=== PATIENT | male | born 1940 | race Caucasian/White ===

== ENCOUNTER 2018-04-17 17:09 | Emergency (ER) | payer OTHER ==
--- NOTE | 2018-04-17 17:32 | PDOC ---
Attending Attestation - Resident Resident Name: Jacque Richardsonan - ED Attending Attestation I have performed the following: I have examined & evaluated the patient, The case was reviewed & discussed with the resident, I agree w/resident's findings & plan - HPI HPI: 04/17/18 17:28 77y/o M h/o BPH noncompliant with his flomax for 4d presents sent from Dr. Ferguson 's office with urinary retention for 3d. reports dribbling with bladder distension, no flank pain or f/c. no h/o prostate surgery. - Physicial Exam PE: 04/17/18 17:30 afebrile well appearing and ambulating comfortably abd soft/nt but palpable distended bladder. no cvat - Medical Decision Making 04/17/18 17:31 77-year-old male with history of BPH presents with urinary retention for 3 days in the setting of noncompliance with his medication. Well-appearing without evidence of SIRS or sepsis, has had small urine output over that time. Tadeo decompression Check lites and creatinine given prolonged obstruction Urinalysis and urine culture sent Anticipate discharge with Tadeo to leg bag and urology follow-up 04/17/18 18:10 mild hypo-Na/Cl, Cr increased to 1.8 from 1.1 but K normal. about 900cc clear urine in Tadeo. Start IV NS 1L. Will discuss dispo with Dr. Ferguson, if can recheck labs in AM, pt feels well without hyperkalemia/volume overload from LEONARDO so can consider outpt management. 04/17/18 18:[address] Ferguson, agrees with d/c plan and will arrange for patient to have repeat chem tomorrow. Complete liter, tadeo to leg bag, d/c to repeat labs tomorrow with Marty and f/u urology this week.
[2018-04-17 17:44] VITALS: BP 141/82; PULSE 93; TEMP 98.5; BMI 20.9
--- NOTE | 2018-04-17 17:45 | PDOC ---
History of Present Illness <Khoa Redd - Last Filed: 04/17/18 18:39> - History of Present Illness Initial Comments: The patient is a 77M w/ a history of BPH who presents for evaluation of 3d of urinary retention. The patient reports that he stopped taking his Tamsulosin 4 days ago. Since that time he describes having frequent urinary dribbling but is unable to have a complete void. He denies painful passage of urine, blood in his urine, or abdominal pain. He denies ever having had this before. He denies any other medical problems including renal disease, DM, or HTN. He denies recent fevers/chills, LOPES, vision changes, chest pain, SOB, N/C/V, or changes in sensation 04/17/18 17:56 <Walt Richardson - Last Filed: 04/17/18 18:56> - General Chief Complaint: Urinary Catheter Problem Stated Complaint: insert a catheter Time Seen by Provider: 04/17/18 17:14 Past History <Khoa Redd - Last Filed: 04/17/18 18:39> <Walt Richardson - Last Filed: 04/17/18 18:56> - Past Medical History Allergies/Adverse Reactions: Allergies Allergy/AdvReac Type Severity Reaction Status Date / Time No Known Allergies Allergy Verified 04/17/18 17:39 Review of Systems - Review of Systems Able to Perform ROS?: Yes Comments:: GENERAL/CONSTITUTIONAL: No fever or chills. No weakness CARDIOVASCULAR: No chest pain or shortness of breath GASTROINTESTINAL: No nausea, vomiting, constipation GENITOURINARY: per HPI MUSCULOSKELETAL: No joint or muscle swelling or pain. No neck or back pain SKIN: No rash NEUROLOGIC: No headache, vertigo, loss of consciousness, or change in strength/ sensation ENDOCRINE: No increased thirst. No abnormal weight change HEMATOLOGIC/LYMPHATIC: No anemia, easy bleeding, or history of blood clots ALLERGIC/IMMUNOLOGIC: No hives or skin allergy 04/17/18 18:00 Is the patient limited Montserratian proficient: No <Walt Richardson - Last Filed: 04/17/18 18:56> *Physical Exam - Vital Signs Last Vital Signs Temp Pulse Resp BP Pulse Ox 98.5 F 93 H 18 141/82 97 04/17/18 17:11 04/17/18 17:11 04/17/18 17:11 04/17/18 17:11 04/17/18 17:11 <Khoa Redd - Last Filed: 04/17/18 18:39> - Vital Signs Vital Signs Temp Pulse Resp BP Pulse Ox 98.5 F 93 H 18 141/82 97 04/17/18 17:11 04/17/18 17:11 04/17/18 17:11 04/17/18 17:11 04/17/18 17:11 04/17/18 18:01 - Physical Exam Comments: GENERAL: Awake, alert, and fully oriented, in no acute distress HEAD: No signs of trauma, normocephalic, atraumatic EYES: PERRLA, EOMI, sclera anicteric, conjunctiva clear ENT: Hearing grossly normal, nares patent, oropharynx clear without exudates. Moist mucosa LUNGS: No distress, speaks full sentences, clear to auscultation bilaterally HEART: Regular rate and rhythm, normal S1 and S2, no murmurs appreciated, peripheral pulses normal and equal bilaterally ABDOMEN: Distended bladder palpable from suprapubic region to umbilicus; otherwise abd soft; normoactive bowel sounds. No guarding, no rebound EXTREMITIES : Normal inspection, Normal range of motion, no edema. No clubbing or cyanosis NEUROLOGICAL: Cranial nerves II through XII grossly intact. Normal speech, normal gait, no focal sensorimotor deficits SKIN: Warm, Dry, normal turgor, no rashes or lesions noted 04/17/18 18:01 <Walt Richardson - Last Filed: 04/17/18 18:56> ED Treatment Course - LABORATORY CBC & Chemistry Diagram: 04/17/18 17:26 - ADDITIONAL ORDERS Additional order review: Laboratory Results 04/17/18 17:26 Sodium 128 L Potassium 3.7 Chloride 95 L Carbon Dioxide 24 Anion Gap 9 BUN 59 H Creatinine 1.8 H Creat Clearance w eGFR 36.77 Random Glucose 139 H D Calcium 8.9 - Medications Given in the ED: ED Medications Discontinued Medications Generic Name Dose Route Start Last Admin Trade Name Freq PRN Reason Stop Dose Admin Sodium Chloride 1,000 ml 04/17/18 17:52 04/17/18 18:10 Normal Saline - IV 04/17/18 17:53 1,000 ml ONCE ONE Administration <Khoa Redd - Last Filed: 04/17/18 18:39> - LABORATORY CBC & Chemistry Diagram: 04/17/18 17:26 <Walt Richardson - Last Filed: 04/17/18 18:56> Medical Decision Making - Medical Decision Making The patient is a 77M w/ a history of BPH on Tamsulosin (missed last 4 days) who presents for evaluation of 3d of urinary retention ED Course BMP to evaluate renal fxn UA, UCx Tadeo placed for retention -Urine clear w/o evidence of hematuria -Will measure initial output -Will replace with leg bag 04/17/18 17:49 KEVIN, Cr 1.8, baseline 1.1 Hyponatremia 128 and Hypochloridemia 95 -Will give 1L NS -Will discuss case with Dr. Ferguson, if able to see pt in clinic tomorrow to f/u fxn will plan for DC 04/17/18 17:52 Patient will be able to obtain a follow up BMP tomorrow w/ Dr. Ferguson Will give pt referral to Urology Patient to restart his home Tamsulosin Plan for D/C w/ PCP and Urology f/u Will D/C with leg bag Discharge instructions and return precautions given Patient verbalized understanding and is in agreement UA w/o evidence of UTI Initial Uop approximately 800cc of light yellow urine Dispo: Home 04/17/18 18:49 <Walt Richardson - Last Filed: 04/17/18 18:56> *DC/Admit/Observation/Transfer <Khoa Redd - Last Filed: 04/17/18 18:39> - Discharge Dispostion Decision to Admit order: No <Walt Richardson - Last Filed: 04/17/18 18:56> Diagnosis at time of Disposition: Urinary retention - Discharge Dispostion Disposition: HOME Condition at time of disposition: Improved - Referrals Referrals: Blaise Cid MD [Staff Physician] - Jose Roberto Ferguson MD [Staff Physician] - - Patient Instructions Printed Discharge Instructions: How to Care for Your Tadeo Catheter -- Male, DI for Urinary Retention in Men Additional Instructions: You were seen in the Emergency Department for evaluation of urinary retention. A tadeo was placed and will need to be evaluated by a Urologist. Please follow up your referral within the next 3 days. Review the handouts provided at discharge. Continue your Flomax as previously prescribed. Blood tests need to be repeated to make sure your kidneys are recovering properly from being obstructed. RETURN TO DR. FERGUSON's OFFICE TOMORROW FOR BLOOD TESTS. He will leave a prescription order for you at the front end ui developer. Return to the Emergency Room if you develop fevers/chills, abdominal pain, blood in your urine, decreased urine flow, worsening pain, or any new/ concerning symptoms.
[2018-04-17 17:46] LABS: ANION GAP 9 MMOL/L (8-16); BLOOD UREA NITROGEN 59 mg/dl (7-18); CALCIUM 8.9 mg/dl (8.4-10.2); CHLORIDE 95 mmol/L (98-107); CO2 24 mmol/L (22-28); CREATININE 1.8 mg/dl (0.6-1.3); GLUCOSE,RANDOM 139 mg/dl (74-106); POTASSIUM 3.7 mmol/L (3.5-5.1); SODIUM 128 mmol/L (136-145)
[2018-04-17] MEDS ORDERED: SODIUM CHLORIDE 0.9% 500 ML INFUS.BAG IV ONE (17:52)
[2018-04-17 18:52] LABS: PH,URINE 5.5 (4.5-8); URINE APPEARANCE Clear; URINE BILIRUBIN Negative (NEGATIVE); URINE COLOR Yellow; URINE GLUCOSE (UA) Negative (NEGATIVE); URINE KETONE Negative (NEGATIVE); URINE LEUK ESTERASE Negative (NEGATIVE); URINE NITRITE Negative (NEGATIVE); URINE PROTEIN Negative (NEGATIVE); URINE UROBILINOGEN 0.2 (0.2-1.0)
[2018-04-17 18:53] LABS: URINE BACTERIA 1+ /hpf (NEGATIVE); URINE WBC 0-2 (0-2)
== END 2018-04-17 19:39 | disposition home or self-care (01) ==
LOC: FER 17:09
PROC: 0T9B70Z Drainage of Bladder with Drainage Device, Via Natural or Artificial Opening (ICD-10-PCS; principal; 2018-04-17)
PROC: 3E0337Z Introduction of Electrolytic and Water Balance Substance into Peripheral Vein, Percutaneous Approach (ICD-10-PCS; 2018-04-17)
DX: R33.9 Retention of urine, unspecified (principal); N40.0 Benign prostatic hyperplasia without lower urinary tract symptoms
CPT/HCPCS: 36415; 51702; 80048; 81003; 81015; 87086; 99283-25

== ENCOUNTER 2018-04-20 13:01 | Emergency (ER) | payer OTHER ==
[2018-04-20 13:13] VITALS: BP 108/68; PULSE 74; TEMP 99.1; BMI 21.5
--- NOTE | 2018-04-20 13:36 | PDOC ---
History of Present Illness - General Chief Complaint: Urinary Catheter Problem Stated Complaint: PT NEEDS CERON CATHETER REMOVED Time Seen by Provider: 04/20/18 13:10 History Source: Patient Exam Limitations: No Limitations - History of Present Illness Initial Comments: 04/20/18 13:31 77 yo M with h/o BPH here with c/o urinary retention. pt was seen in ed few days ago and had a ceron cathetar placed. here today to have it removed. states has been draining fine. no f/c no abd pain no back pain. wants it out because it is uncomfortable. believes his retention was from stopping his flomax for few days. no uti diagnosed on last visit. no f/c. spoke to dr. ferguson, who recommended pt have it out today if he wished. has not seen a urologist yet. has appointment scheduled for 2 days from today. Past History - Past Medical History Allergies/Adverse Reactions: Allergies Allergy/AdvReac Type Severity Reaction Status Date / Time No Known Allergies Allergy Verified 04/17/18 17:39 Home Medications: Ambulatory Orders Terazosin HCl [Hytrin] 1 mg PO DAILY 04/20/18 COPD: No Other medical history: LOW BLOOD PRESSURE - Suicide/Smoking/Psychosocial Hx Smoking History: Never smoked Information on smoking cessation initiated: No Hx Alcohol Use: No Drug/Substance Use Hx: No Substance Use Type: None Review of Systems - Review of Systems Constitutional: No: Chills, Diaphoresis, Fever HEENTM: No: Blurred Vision Respiratory: No: Cough, Orthopnea Cardiac (ROS): No: Chest Pain ABD/GI: No: Abdominal Distended : Yes: Other. No: Pain, Urgency Integumentary: No: Bruising, Change in Color All Other Systems: Reviewed and Negative *Physical Exam - Vital Signs Last Vital Signs Temp Pulse Resp BP Pulse Ox 99.1 F 74 16 108/68 100 04/20/18 13:03 04/20/18 13:03 04/20/18 13:03 04/20/18 13:03 04/20/18 13:03 Medical Decision Making - Medical Decision Making 04/20/18 13:35 pt with ho urinary retention, ceron placed requesting removal. has had not had followup with dr ferguson or urologist. informed pt high chance of recurrent retention will remove per request and followup with flori. message left with dr ferguson office. awaiting callback. *DC/Admit/Observation/Transfer Diagnosis at time of Disposition: Ceron catheter problem - Discharge Dispostion Disposition: HOME Condition at time of disposition: Good - Referrals Referrals: Jose Roberto Ferguson MD [Staff Physician] - Gordo Mckeon MD [Staff Physician] - - Patient Instructions Printed Discharge Instructions: DI for Urinary Retention in Men Additional Instructions: your ceron was removed today. you should return for any inability to urinate longer than 6 yrs, abdominal pain or any concerns. follow up [facility] Ferguson as scheduled. - Post Discharge Activity
== END 2018-04-20 13:47 | disposition home or self-care (01) ==
LOC: FER 13:01
DX: Z46.6 Encounter for fitting and adjustment of urinary device (principal)
CPT/HCPCS: 99282-25

== ENCOUNTER 2018-04-21 10:51 | Emergency (ER) | payer OTHER ==
[2018-04-21 11:04] VITALS: BP 127/72; PULSE 77; TEMP 98.3; BMI 21.5
[2018-04-21 11:31] LABS: PH,URINE 5.5 (4.5-8); URINE APPEARANCE Clear; URINE BILIRUBIN Negative (NEGATIVE); URINE COLOR Yellow; URINE GLUCOSE (UA) Negative (NEGATIVE); URINE KETONE Negative (NEGATIVE); URINE LEUK ESTERASE Negative (NEGATIVE); URINE NITRITE Negative (NEGATIVE); URINE PROTEIN Negative (NEGATIVE); URINE UROBILINOGEN 0.2 (0.2-1.0)
--- NOTE | 2018-04-21 11:42 | PDOC ---
History of Present Illness - General Chief Complaint: Urinary Problem Stated Complaint: URINARY RETENSION Time Seen by Provider: 04/21/18 10:54 History Source: Patient Exam Limitations: No Limitations - History of Present Illness Initial Comments: 04/21/18 11:14 77m with pmh of BPH presnets to the Ed with urinary retention since yesterday. He came yesterday to the ER to get his tadeo removed due to discomfort. Past History - Past Medical History Allergies/Adverse Reactions: Allergies Allergy/AdvReac Type Severity Reaction Status Date / Time No Known Allergies Allergy Verified 04/21/18 10:52 Home Medications: Ambulatory Orders Terazosin HCl [Hytrin] 1 mg PO DAILY 04/20/18 COPD: No Other medical history: URINARY RETENTION - Suicide/Smoking/Psychosocial Hx Smoking History: Never smoked Information on smoking cessation initiated: No Hx Alcohol Use: No Drug/Substance Use Hx: No Substance Use Type: None Review of Systems - Review of Systems Able to Perform ROS?: Yes Is the patient limited [place]an proficient: No Constitutional: No: Symptoms Reported HEENTM: No: Symptoms Reported Respiratory: No: Symptoms reported Cardiac (ROS): No: Symptoms Reported ABD/GI: No: Symptoms Reported : Yes: See HPI Musculoskeletal: No: Symptoms Reported Integumentary: No: Symptoms Reported Neurological: No: Symptoms reported All Other Systems: Reviewed and Negative *Physical Exam - Vital Signs Last Vital Signs Temp Pulse Resp BP Pulse Ox 98.3 F 77 20 127/72 98 04/21/18 10:52 04/21/18 10:52 04/21/18 10:52 04/21/18 10:52 04/21/18 10:52 - Physical Exam General Appearance: Yes: Nourished, Appropriately Dressed. No: Apparent Distress HEENT: positive: EOMI, CARLOS, Normal ENT Inspection Respiratory/Chest: positive: Lungs Clear, Normal Breath Sounds. negative: Chest Tender, Respiratory Distress Cardiovascular: positive: Regular Rhythm, Regular Rate, S1, S2 Gastrointestinal/Abdominal: positive: Normal Bowel Sounds, Flat, Soft. negative : Tender Extremity: positive: Normal Capillary Refill, Normal Inspection, Normal Range of Motion Integumentary: positive: Normal Color, Dry, Warm Neurologic: positive: Fully Oriented, Alert, Normal Mood/Affect, Normal Response , Motor Strength 5/5 Medical Decision Making - Medical Decision Making 04/21/18 12:58 Tadeo placed. 1.5L of Urine in bag. Checked after 30min, no change in volume. Will discharge with leg bag.. Patient will follow up with urologist on Monday. *DC/Admit/Observation/Transfer - Discharge Dispostion Disposition: HOME Condition at time of disposition: Stable Decision to Admit order: No - Referrals - Patient Instructions Printed Discharge Instructions: How to Care for Your Tadeo Catheter -- Male Additional Instructions: Follow up with your urologist on Monday. Come back to the ER for any new, worsening or concerning symptoms such as blood in the urine, fever, chills, abdominal pain or foul smelling urine. - Post Discharge Activity
--- NOTE | 2018-04-21 12:42 | PDOC ---
Attending Attestation - Resident Resident Name: GavinEdson - ED Attending Attestation I have performed the following: I have examined & evaluated the patient, The case was reviewed & discussed with the resident, I agree w/resident's findings & plan, Exceptions are as noted - HPI HPI: 04/21/18 12:41 77yo M hx BPH presents to the ED with urinary retention since tadeo was removed yesterday. Patient initially had a Tadeo placed for urine retention on April 17 after skipping some doses of flomax. He presented to the emergency department yesterday requesting removal as it was very uncomfortable. Tadeo was removed in the ED yesterday, and patient was able to void. He states since discharge she has been unable to void prompting him to come back today. Denies any fevers or chills. Denies nausea or vomiting. Denies chest pain, shortness of breath, headache, weakness/numbness. Has a follow-up appointment with a urologist on Monday. - Physicial Exam PE: 04/21/18 13:19 GENERAL: Awake, alert, and fully oriented, in no acute distress EYES: PERRLA, EOMI, sclera anicteric, conjunctiva clear ENT: Oropharynx clear without exudates. Moist mucosa NECK: Normal ROM, supple, no lymphadenopathy, JVD, or masses LUNGS: Breath sounds equal, clear to auscultation bilaterally. No wheezes, and no crackles HEART: Regular rate and rhythm, normal S1 and S2, no murmurs, rubs or gallops ABDOMEN: Soft, nontender, normoactive bowel sounds. No guarding, no rebound. No masses. : No CVAT, tadeo in place with 1300mL output over 1.5 hours EXTREMITIES: Normal range of motion, no edema. No cords, erythema, or tenderness NEUROLOGICAL: Normal speech, cranial nerves intact, 5/5 strength in all 4 extremities, normal sensation to light touch in all 4 extremities, normal cerebellar exam, normal gait, normal tone SKIN: Warm, Dry, normal turgor, no rashes or lesions noted. - Medical Decision Making 04/21/18 13:21 77yo M presents to the ED with urine retention after removal of tadoe yesterday. Tadeo replaced with 1300 UOP over 2 hours. Pt feels much better, has appt with urology on Monday. Clinically well appearing, stable for DC home I discussed the physical exam findings, ancillary test results and final diagnoses with the patient. I answered all of the patient's questions. The patient was satisfied with the care received and felt comfortable with the discharge plan and treatment plan. The patient will call their primary care physician within 24 hours to arrange follow-up and will return to the Emergency Department with any new, persistent or worsening symptoms.
== END 2018-04-21 13:18 | disposition home or self-care (01) ==
LOC: FER 10:51
PROC: 0T9B70Z Drainage of Bladder with Drainage Device, Via Natural or Artificial Opening (ICD-10-PCS; principal; 2018-04-21)
DX: R33.9 Retention of urine, unspecified (principal)
CPT/HCPCS: 51702; 81003; 87086; 99283-25

== ENCOUNTER 2018-05-01 05:58 | Day surgery (SDC) | payer OTHER ==
[2018-04-30 16:57] VITALS: BMI 21.5
--- NOTE | 2018-05-01 07:27 | HP ---
History & Physical Update - History History: No Change - Physical Physical: No Change - Assessment Assessment: No Change - Plan Plan: No Change
--- NOTE | 2018-05-01 07:29 | OP ---
Operative Note - Note: Operative Date: 05/01/18 Pre-Operative Diagnosis: BPH, urinary retention Operation: TURP Findings: BPH Post-Operative Diagnosis: Same as Pre-op Surgeon: Gordo Mckeon Anesthesiologist/IT ARCHITECTURE ANALYST: Lorraine Peraza Anesthesia: General Specimens Removed: prostate tissue Estimated Blood Loss (mls): 25 Drains & Tubes with Location: [address] 30 ml tadeo Operative Report Dictated: Yes
[2018-05-01] MEDS ORDERED: PROPOFOL 20 ML ONE (07:37)
[2018-05-01] MEDS ORDERED: ePHEDrine SULFATE 50 MG/1 ML AMPULE ONE (07:37)
[2018-05-01] MEDS ORDERED: MIDAZOLAM HCL 2 MG/2 ML SINGLE DOSE VIAL ONE (07:37)
[2018-05-01] MEDS ORDERED: SUCCINYLCHOLINE CHLORIDE 200 MG/10 ML VIAL ONE (07:37)
[2018-05-01] MEDS ORDERED: LIDOCAINE HCL/PF 2% SDV 5ML VIAL ONE (07:38)
[2018-05-01] MEDS ORDERED: DEXAMETHASONE SOD PHOSPHATE 4 MG/1 ML VIAL ONE (07:38)
[2018-05-01] MEDS ORDERED: ceFAZolin SODIUM 1 GM VIAL ONE (07:42)
[2018-05-01] MEDS ORDERED: ONDANSETRON 4 MG/2 ML VIAL IVPUSH PRN (08:06)
[2018-05-01] MEDS ORDERED: oxyCODONE HCL 5 MG TABLET PO PRN (08:07)
[2018-05-01] MEDS ORDERED: ACETAMINOPHEN 325 MG TABLET (FP) PO PRN (08:07)
[2018-05-01] MEDS ORDERED: ceFAZolin SODIUM 1 GM VIAL IVPB ONE (08:08)
[2018-05-01] MEDS ORDERED: LACTATED RINGERS SOLUTION 1,000 ML IV SCH (08:15)
--- NOTE | 2018-05-01 09:23 | OP ---
DATE OF OPERATION: 05/01/2018 PREOPERATIVE DIAGNOSES: Benign prostatic hypertrophy, urinary retention. POSTOPERATIVE DIAGNOSES: Benign prostatic hypertrophy, urinary retention. PROCEDURE: Transurethral resection of the prostate. SURGEON: Gordo Mckeon MD CDL FLATBED TRUCK DRIVER: None. ANESTHESIA: General via laryngeal mask. ANESTHESIOLOGIST: SANDY Friend SPECIMEN: Prostate tissue. CULTURES: None. DRAINS: 24-Kyrgyz 3-way Kasper catheter, 30-mL balloon. ESTIMATED BLOOD LOSS: 20 mL COMPLICATIONS: None. DESCRIPTION OF PROCEDURE: Patient brought in the operating room, placed on the operating table in supine position. After administration of general anesthesia via laryngeal mask, intravenous antibiotics were administered. Sequential compression devices were placed. Patient was placed in dorsal lithotomy position. Indwelling Kasper catheter was removed, and genitals and perineum were prepped and draped in usual sterile manner. A 26-Kyrgyz resectoscope sheath with visualizing obturator was inserted into the bladder under direct vision. Anterior urethra was normal. The prostatic urethra measured approximately 5 cm in length, demonstrated severe bilobar occlusion. The bladder was then entered, thoroughly inspected. There were no foreign bodies, tumors, stones, inflammation. Both ureteral orifices were in their usual location close to the bladder neck with clear efflux bilaterally. There were heavy bladder trabeculations with cellules and saccules. Now, the working element bipolar Winchester resectoscope was inserted. TURP was done in the standard fashion by first creating a groove in the left lateral lobe 2 o'clock position from the area of the bladder neck to the verumontanum, down to the level of the capsular fibers. The left lateral lobe of the prostate was then sequentially resected from the 2 to the 6 o'clock position, from the area of the bladder neck to the verumontanum, down to the level of the capsular fibers. In a similar manner, the right lateral lobe of the prostate was resected. The roof and the floor of the prostate were resected. All obstructive prostatic tissue from the bladder neck to the verumontanum was resected down to capsular fibers. Hemostasis was assured with electrocautery. All resected prostatic tissue was removed from the bladder using Ellik evacuator. Both ureteral orifices were intact at the end of the procedure. The bladder was left full. Instruments removed. A 24-Kyrgyz 3-way Kasper catheter was inserted in the bladder; 30 mL placed in the balloon; placed on continuous bladder irrigation. Return blood tinged. He tolerated the procedure well, transferred to the recovery room in stable condition. Reji [id number] cc: Jose Roberto Ferguson MD
[2018-05-01] MEDS ORDERED: ACETAMINOPHEN INJECTION 100 ML IVPB ONE (10:26)
[2018-05-01] MEDS: ACETAMINOPHEN 1000 MG/100 ML VIAL (NON FORMULARY) IVPB ONE ×2 (11:15→13:48)
[2018-05-01] MEDS: CEFAZOLIN 1 GM in DEXTROSE 5%-WATER - 50 ML IVPB SCH ×2 (13:47→18:53)
[2018-05-01] MEDS ORDERED: PT OWN MED DRAWER 7, Y5N ONE (18:07)
[2018-05-01] MEDS: CEFAZOLIN 1 GM/D5W 1 GM/50 ML BAG IVPB SCH (18:40)
[2018-05-01] MEDS ORDERED: TERAZOSIN HCL 5 MG CAPSULE PO SCH (22:00)
[2018-05-02] MEDS: CEFAZOLIN 1 GM/D5W 1 GM/50 ML BAG IVPB SCH ×2 (01:10→09:25)
[2018-05-02 14:29] VITALS: BP 118/67; PULSE 74; TEMP 98.4
--- NOTE | 2018-05-02 17:03 | PATH ---
Surgical Pathology Report Patient Name: WILLIAM STATON Med. Rec. #: [id number] /Age/Gender: 1940 (Age: 77) / M Account: [id number] Location: AMBULATORY SURG Taken: 05/01/2018 Received: 05/01/2018 Reported: 05/02/2018 Physicians: Gordo Mckeon M.D. Specimen(s) Received PROSTATE CHIPS Clinical History Urinary retention, BPH with LUTS Final Diagnosis PROSTATE CHIPS, TRANSURETHRAL RESECTION OF PROSTATE: BENIGN PROSTATIC TISSUE WITH CHRONIC INFLAMMATION, ACINAR ATROPHY, CYSTIC CHANGES, GLANDULAR AND STROMAL HYPERPLASIA. Electronically Signed Yvette Pearson M.D. Gross Description Received in formalin labeled "prostate chips," is a 12 g, 9.0 x 7.0 x 0.7 cm aggregate of landeros, irregular, firm to rubbery portions of tissue, consistent with prostate chips. A communications representative portion is submitted in 9 cassettes. /05/01/2018 saudi05/01/2018
== END 2018-05-02 16:35 | disposition home or self-care (01) ==
LOC: JASU-SURG 05:58 → JASUSAT 05:58 → J8W 12:15 → JASUSAT 05-02 16:35
PROVIDERS: ATTEND Urology
PROC: 0V508ZZ Destruction of Prostate, Via Natural or Artificial Opening Endoscopic (ICD-10-PCS; principal; 2018-05-01 07:30)
DX: N40.1 Benign prostatic hyperplasia with lower urinary tract symptoms (principal); R33.8 Other retention of urine
CPT/HCPCS: 88305-TC; 94760; J0131

== ENCOUNTER 2018-06-01 10:27 | Observation (INO) | payer OTHER ==
[2018-05-28 10:33] VITALS: BMI 20.7
--- NOTE | 2018-06-01 11:21 | HP ---
History & Physical Update - History History: No Change - Physical Physical: No Change - Assessment Assessment: No Change - Plan Plan: No Change
--- NOTE | 2018-06-01 11:24 | OP ---
Operative Note - Note: Operative Date: 06/01/18 Pre-Operative Diagnosis: BPH, urinary retention Operation: TURP Findings: residual apical adenoma Post-Operative Diagnosis: Same as Pre-op Surgeon: Gordo Mckeon Anesthesiologist/WHITING CAN WORKER: Adali Escobar Anesthesia: General Specimens Removed: prostate tissue Estimated Blood Loss (mls): 50 Drains & Tubes with Location: [address] 30 cc balloon tadeo Operative Report Dictated: Yes
[2018-06-01] MEDS ORDERED: PROPOFOL 20 ML ONE ×2 (11:25→11:35)
[2018-06-01] MEDS ORDERED: oxyCODONE/APAP 1 EACH - MUST ORDER COMBO PRODUCT NR PRN (11:28)
[2018-06-01] MEDS ORDERED: ceFAZolin SODIUM 1 GM VIAL IVPB ONE (11:37)
[2018-06-01] MEDS ORDERED: DEXAMETHASONE SOD PHOSPHATE 4 MG/1 ML VIAL ONE (11:41)
[2018-06-01] MEDS ORDERED: ceFAZolin SODIUM 1 GM VIAL ONE (11:41)
[2018-06-01] MEDS ORDERED: oxyCODONE HCL 5 MG TABLET PO PRN (12:46)
[2018-06-01] MEDS ORDERED: ACETAMINOPHEN 325 MG TABLET (FP) PO PRN (12:46)
[2018-06-01] MEDS ORDERED: ONDANSETRON 4 MG/2 ML VIAL IVPUSH PRN (12:57)
[2018-06-01] MEDS ORDERED: LACTATED RINGERS SOLUTION 1,000 ML IV SCH (13:00)
[2018-06-01] MEDS ORDERED: GLYCOPYRROLATE 0.2 MG/1 ML VIAL ONE (13:34)
--- NOTE | 2018-06-01 14:12 | OP ---
DATE OF OPERATION: 06/01/2018 PREOPERATIVE DIAGNOSIS: Benign prostatic hypertrophy, urinary retention. POSTOPERATIVE DIAGNOSIS: Benign prostatic hypertrophy, urinary retention. PROCEDURE: Transurethral resection of the prostate. SURGEON: Gordo Mckeon MD FLARE MAKER: None. ANESTHESIA: General via laryngeal mask. ANESTHESIOLOGIST: Adali Escobar DO SPECIMENS: Prostate tissue. CULTURES: None. DRAINS: A 22-Tuvaluan 3-way Kasper catheter with 30-mL balloon. ESTIMATED BLOOD LOSS: 50 mL. COMPLICATIONS: None. PROCEDURE: The patient was brought into the operating room and placed on the operating room table in the supine position. After administration of general anesthesia via laryngeal mask, intravenous antibiotics were administered, and sequential compression devices were placed. The patient was placed in the dorsal lithotomy position. Indwelling Kasper catheter was removed. Genitals and perineum were prepped and draped in the usual sterile manner. A 26-Tuvaluan resectoscope sheath with visualizing obturator was inserted into the bladder under direct vision. The anterior urethra was normal. The prostatic urethra demonstrated the patient's TURP with residual lateral lobe tissue and apical adenoma. The bladder was entered and thoroughly inspected. There were no foreign bodies, tumors, stones, inflammation. Both ureteral orifices were in their usual location with clear efflux bilaterally. Now the working element Winchester resectoscope was inserted, and using the mushroom, vaporization of the residual obstructing prostatic tissue was done down to capsular fibers from the area of the bladder neck to the verumontanum. All visual obstructive tissue was vaporized. Some tissue was removed with the Ellik evacuator. Hemostasis was assured. The bladder was left full and instrument removed. A No. 22-Tuvaluan 3-way Kasper catheter was inserted into the bladder. Then 30 mL was placed in the balloon placed on continuous bladder irrigation. Returned minimally blood tinged. Tolerated the procedure well. Was awoken from anesthesia in the operating room and transferred to the recovery room in a stable condition. GORDO MCKEON M.D. [id number]
[2018-06-01 14:30] LABS: BASO % 0.7 % (0-2.0); EOS % 0.7 % (0-4.5); HEMATOCRIT 33.4 % (35.4-49); HEMOGLOBIN 10.8 GM/dL (11.7-16.9); LYMPH % 5.7 % (8-40); MCH 31.2 pg (25.7-33.7); MCHC 32.3 g/dl (32.0-35.9); MEAN CELL VOLUME 96.7 fl (80-96); MONO % 2.7 % (3.8-10.2); NEUT % 90.2 % (42.8-82.8); PLATELET COUNT 226 K/MM3 (134-434); RBC 3.46 M/mm3 (4.00-5.60); RDW 13.9 % (11.9-15.9); WHITE BLOOD COUNT 7.5 K/mm3 (4.0-10.0)
[2018-06-01 15:09] LABS: ALBUMIN 3.2 g/dl (3.4-5.0); ALK PHOS 67 U/L (45-117); ANION GAP 3 MMOL/L (8-16); BILIRUBIN,TOTAL 0.2 mg/dL (0.2-1); BLOOD UREA NITROGEN 17 mg/dL (7-18); CALCIUM 8.4 mg/dL (8.5-10.1); CHLORIDE 105 mmol/L (98-107); CO2 29 mmol/L (21-32); CREATININE 1.1 mg/dL (0.55-1.3); GLUCOSE,RANDOM 108 mg/dL (74-106); POTASSIUM 4.5 mmol/L (3.5-5.1); SGOT/AST 13 U/L (15-37); SGPT/ALT 15 U/L (13-61); SODIUM 138 mmol/L (136-145); TOT PROT 5.9 g/dl (6.4-8.2)
--- NOTE | 2018-06-01 15:58 | ECHO ---
Name: WILLIAM STATON Exam:Adult Echocardiogram Study Date: 06/01/2018 02:14 PM Age: 78 yrs Reason For Study: CVA Height: 70 in Weight: 145 lb BSA: 1.8 m2 MMode/2D Measurements & Calculations IVSd: 0.83 cm Ao root diam: 3.3 cm LVIDd: 4.3 cm LA dimension: 3.3 cm LVIDs: 3.1 cm LVPWd: 0.84 cm EDV(Teich): 81.3 ml TAPSE: 2.6 cm ESV(Teich): 38.7 ml Doppler Measurements & Calculations MV E max ricardo: 70.1 cm/sec Ao V2 max: 163.9 cm/sec MV A max ricardo: 77.0 cm/sec Ao max P.7 mmHg MV E/A: 0.91 Ao V2 mean: 104.7 cm/sec MV dec time: 0.19 sec Ao mean P.0 mmHg Ao V2 VTI: 32.5 cm LV V1 max P.9 mmHg TR max ricardo: 153.8 cm/sec LV V1 mean P.4 mmHg TR max P.0 mmHg LV V1 max: 111.1 cm/sec LV V1 mean: 70.1 cm/sec LV V1 VTI: 21.5 cm Med Peak E' Ricardo: 7.3 cm/sec Med E/e': 9.6 Lat Peak E' Ricardo: 7.7 cm/sec Lat E/e': 9.1 Left Ventricle The left ventricular size, thickness and function are normal. The left ventricular ejection fraction is normal. Ejection Fraction = 50-55%. Grade I diastolic dysfunction, (abnormal relaxation pattern). The left ventricular wall motion is normal. There is no thrombus. Right Ventricle The right ventricle is normal size. There is normal right ventricular wall thickness. The right ventr icular systolic function is normal. Atria Normal left and right atrial size and function. Mitral Valve There is mild mitral valve thickening. There is trace to mild mitral regurgitation. Tricuspid Valve There is mild tricuspid regurgitation. Right ventricular systolic pressure is normal. Aortic Valve There is mild aortic valve thickening. Pulmonic Valve Trace pulmonic valvular regurgitation. Great Vessels The aortic root is normal size. Pericardium/Pleura There is no pericardial effusion. Interpretation Summary Ejection Fraction = 50-55%. Grade I diastolic dysfunction, (abnormal relaxation pattern). The left ventricular wall motion is normal. There is no thrombus. The right ventricular systolic function is normal. The right ventricle is normal size. There is normal right ventricular wall thickness. Normal left and right atrial size and function. There is mild mitral valve thickening. There is trace to mild mitral regurgitation. There is mild tricuspid regurgitation. Right ventricular systolic pressure is normal. There is mild aortic valve thickening. Trace pulmonic valvular regurgitation. The aortic root is normal size. There is no pericardial effusion. Charan Campuzano MD 06/01/2018 03:58 PM
--- NOTE | 2018-06-01 16:06 | CONSULT ---
Consultation: REQUESTING PROVIDER: Dr Mckeon CONSULT REQUEST: We have been asked to medically evaluate this patient for post TURP bradycardia (hospitalist group) HISTORY OF PRESENT ILLNESS: Pt is a 78 yo M with PMHx of hepatitis A, BPH, urinary retention with tadeo, prior TURP, who was noted to have become bradycardic up to 33bpm during/after TURP today. Pt had sinus bradycardia with pauses vs 2nd degree AV block type 2 on the tele strip (D/W Dr Campuzano) in PACU while asleep. Pt denies fevers, palpitations, chest pain, syncope during the bradycardic episode. Pt received fentanyl intraop and had been inconsistently on terazosin prior to need for initial tadeo catheterization on 04/19. No hx of UTI in past. Pt had TURP May 01 which failed (still retained) and needed a new procedure today. No abdominal pain or distension, bug bites, recent travel or sick contacts. Pt has no past cardiac hx. Says he [place] able [place] except since the tadeo insertion when he became increasingly weak (per ). Last documented ECHO 2013: Nl LVEF, LV size, Grade 1 diastolic dysfunction, regional wall motionalities cannot be excluded, trace MR, TR and DC. Post TURP EKG- Showed vent rate 52bpm, likely LVH, sinus bradycardia with with sinus arrythmia, nl axis, QTC-457. 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 HEAD: Normal with no signs of trauma. EYES: Pupils equal, miosed and reactive to light, extraocular movements intact, Uses hearing aide EARS, NOSE, THROAT: Moist mucous membranes, missing upper teeth. NECK: Normal range of motion, supple without lymphadenopathy, JVD, or masses. LUNGS: Breath sounds equal, clear to auscultation bilaterally. No wheezes, and no crackles. HEART: Regular rate and rhythm, normal S1 and S2 without murmur ABDOMEN: Soft, mild suprapubic tenderness, not distended, reduced bowel sounds , Tadeo catheter in place , draining -pink urine MUSCULOSKELETAL: Normal range of motion at all joints. No bony deformities or tenderness. LOWER EXTREMITIES: 2+ pulses, warm, well-perfused. No calf tenderness. No peripheral edema. NEUROLOGICAL: Cranial nerves II-XII intact. Normal speech. Gait not observed CBC, BMP 06/01/18 14:00 06/01/18 14:00 Laboratory Results - last 24 hr 06/01/18 06/01/18 06/01/18 14:00 14:00 14:00 WBC 7.5 RBC 3.46 L Hgb 10.8 L Hct 33.4 L MCV 96.7 H MCH 31.2 MCHC 32.3 RDW 13.9 Plt Count 226 MPV 7.0 L Absolute Neuts (auto) 6.8 Neutrophils % 90.2 H Lymphocytes % 5.7 L Monocytes % 2.7 L Eosinophils % 0.7 Basophils % 0.7 Nucleated RBC % 0 Sodium 138 Potassium 4.5 Chloride 105 Carbon Dioxide 29 Anion Gap 3 L BUN 17 Creatinine 1.1 Creat Clearance w eGFR > 60 Random Glucose 108 H Calcium 8.4 L Magnesium 2.0 Total Bilirubin 0.2 AST 13 L ALT 15 Alkaline Phosphatase 67 Total Protein 5.9 L Albumin 3.2 L TSH 2.07 D Active Medications Generic Name Dose Route Start Last Admin Trade Name Freq PRN Reason Stop Dose Admin Acetaminophen 650 mg 06/01/18 12:46 Tylenol - PO 06/04/18 12:45 Q4H PRN PAIN Cefazolin Sodium 1 gm/ 50 mls @ 100 mls/hr 06/01/18 18:00 Dextrose IVPB 06/02/18 17:59 Q8H-IV JORGE Lactated Ringer's 1,000 mls @ 75 mls/hr 06/01/18 13:00 Lactated Ringers Solution IV ASDIR JORGE Ondansetron HCl 4 mg 06/01/18 12:57 Zofran Injection IVPUSH Q6H PRN NAUSEA AND/OR VOMITING Oxycodone HCl 10 mg 06/01/18 12:46 Roxicodone - PO Q4H PRN PAIN ECHO 2013: Nl LVEF, LV size, Grade 1 diastolic dysfunction, regional wall motionalities cannot be excluded, trace MR, TR and DC. Post TURP EKG- Showed vent rate 52bpm, likely LVH, sinus bradycardia with with sinus arrythmia, nl axis, QTC-457. ECHO 06/01/18: Nl LVEF (50-55%), nl LV size,RVSF-nl, RV size nl,RVSpressure is nl , Grade 1 diastolic dysfunction (abnl relaxation), mild aortic valve thickening , nl aortic root size, trace to mild MR, mild TR and Trace DC, No pericardial effusion. ASSESSMENT/PLAN: Pt is a 78 yo M with PMHx of hepatitis A, BPH, urinary retention with tadeo, prior TURP, who was noted to have become bradycardic up to 33bpm during/after TURP today. Pt had sinus bradycardia with pauses vs 2nd degree AV block type 2 on the tele strip (D/W Dr Campuzano). #Post op Bradycardia: CMP, CBC Trops - pending EKG- sinus gely with arrythmias- see above ECHO- Grade 1 diastolic dysfunction see above Tele Cards- Dr Campuzano on board #BPH s/p TURP (May 01 2018, Jun 01 2018) POD0 TURP Tadeo draining pinkish urine With hx of urinary retention and tadeo cath , prior TURP Cont pain mx Fluid Other mx per urology #hepatitis A Hx of resolved "feco-oral hepatitis" about 4 years ago Monitor #FEN Cont iv fluids Monitor lytes, replete as needed Diet #PPX Per Urology Dispo: We will continue to follow the patient. Thank you for this consultative opportunity. Visit type - Emergency Visit Emergency Visit: Yes ED Registration Date: 06/01/18 Care time: The patient presented to the Emergency Department on the above date and was hospitalized for further evaluation of their emergent condition. - New Patient This patient is new to me today: Yes Date on this admission: 06/01/18 - Critical Care Critical Care patient: No
[2018-06-01] MEDS ORDERED: CEFAZOLIN 1 GM in DEXTROSE 5%-WATER - 50 ML IVPB SCH (18:00)
[2018-06-01] MEDS: CEFAZOLIN 1 GM/D5W 1 GM/50 ML BAG IVPB SCH (18:13)
--- NOTE | 2018-06-01 18:21 | EKG ---
Test Reason : Blood Pressure : / mmHG Vent. Rate : 052 BPM Atrial Rate : 053 BPM P-R Int : 186 ms QRS Dur : 080 ms QT Int : 492 ms P-R-T Axes : 060 067 060 degrees QTc Int : 457 ms SINUS BRADYCARDIA WITH SINUS ARRHYTHMIA OTHERWISE NORMAL ECG NO PREVIOUS ECGS AVAILABLE Confirmed by RENETTA TSAI, ROLANDA ([id number]) on 06/01/2018 6:21:38 PM Referred By: Confirmed By:ROLANDA JACKSON MD
--- NOTE | 2018-06-01 19:43 | CON.CARD ---
Consult Consult Specialty:: cardiology Reason for Consultation:: bradycardia post-op - History of Present Illness Chief Complaint: Pt A&Ox3; no chest pain, dyspnea, dizziness, or palpitations.+ Pain at site of surgery. History of Present Illness: Pt is a 78 yo white man with PMHx of hepatitis A, hearing disorder, BPH (takes terazosyn) urinary retention with tadeo, prior TURP (03/2018) who was noted to have become bradycardic down to 33bpm during/after TURP today. Pt had sinus bradycardia with sinus pauses vs 2nd degree AV block type 2 on the tele strip in PACU while asleep. Pt denies fevers, palpitations, chest pain, syncope during the bradycardic episode. Pt received fentanyl intraop and had been inconsistently on terazosin prior to need for initial tadeo catheterization on 04/19. No hx of UTI in past. Pt had TURP Dec 4 which failed (still retained) and needed a repeat procedure today. No abdominal pain or distention, bug bites, recent travel or sick contacts. Pt has no past cardiac hx. Says he is able to ride a bike several miles a few days a week, and [place] a mountain, except since the tadeo insertion when he became increasingly weak (per ). Last documented ECHO 2013: Nl LVEF, LV size, Grade 1 diastolic dysfunction, regional wall motionalities cannot be excluded, trace MR, TR and WA. Post TURP EKG- Showed vent rate 52 bpm, likely LVH, sinus bradycardia with with sinus arrythmia, nl axis, QTC-457. 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 - History Source History Provided By: Patient, Family Member, Medical Record Limitations to Obtaining History: No Limitations - Past Medical History Cardio/Vascular: No: CAD, HTN, SD Pulmonary: No: Asthma - Past Surgical History Past Surgical History: Yes: TURP - Alcohol/Substance Use Hx Alcohol Use: Yes (rarely) - Smoking History Smoking history: Never smoked - Social History Usual Living Arrangement: With Spouse Home Medications - Allergies Allergies/Adverse Reactions: Allergies Allergy/AdvReac Type Severity Reaction Status Date / Time sulfamethoxazole Allergy Mild Rash Verified 06/01/18 10:53 [From Bactrim] trimethoprim [From Bactrim] Allergy Mild Rash Verified 06/01/18 10:53 - Home Medications Home Medications: Ambulatory Orders Terazosin HCl [Hytrin] 2 mg PO HS 04/20/18 Dutasteride 0.5 mg PO DAILY 05/28/18 Amox-Tr/K Cl [Augmentin - 500Mg Tablet] 1 tab PO BID #14 tab 06/01/18 Family Disease History - Family Disease History Family History: Denies Review of Systems - Review of Systems Constitutional: reports: No Symptoms Eyes: reports: No Symptoms HENT: reports: Hearing Loss (uses hearing aid) Neck: reports: No Symptoms Cardiovascular: reports: No Symptoms Respiratory: reports: No Symptoms Gastrointestinal: reports: No Symptoms Genitourinary: reports: Incontinence Breasts: reports: No Symptoms Reported Musculoskeletal: reports: No Symptoms Integumentary: reports: No Symptoms Neurological: reports: No Symptoms Endocrine: reports: No Symptoms Hematology/Lymphatic: reports: No Symptoms Psychiatric: reports: No Symptoms - Risk Factors Known Risk Factors: Yes: Age, Gender. No: Prior SD /Emb Stroke Vital Signs: Vital Signs Temperature 98.5 F 06/01/18 17:05 Pulse Rate 72 06/01/18 17:05 Respiratory Rate 18 06/01/18 17:05 Blood Pressure 138/80 06/01/18 17:05 O2 Sat by Pulse Oximetry (%) 100 06/01/18 17:05 Constitutional: Yes: Well Nourished, Anxious Eyes: Yes: WNL HENT: Yes: WNL, Other (hard of hearing) Neck: Yes: WNL Respiratory: Yes: WNL Gastrointestinal: Yes: WNL Renal/: Yes: Other (s/p TURP). No: Anuria Cardiovascular: Yes: Bradycardia JVD: No Carotid Bruit: No PMI: Non-Displaced Heart Sounds: Yes: S1, S2 Murmur: Yes: Systolic Murmur, Grade 1 Musculoskeletal: Yes: WNL Extremities: Yes: WNL Edema: No Peripheral Pulses WNL: Yes Integumentary: Yes: WNL Neurological: Yes: WNL ...Motor Strength: WNL Psychiatric: Yes: WNL - Other Data Labs, Other Data: CBC, BMP 06/01/18 14:00 06/01/18 14:00 Troponin, BNP 06/01/18 14:00 Troponin I 0.03 Troponin, BNP 06/01/18 14:00 Troponin I 0.03 Abnormal Lab Results 06/01/18 06/01/18 14:00 14:00 RBC 3.46 L Hgb 10.8 L Hct 33.4 L MCV 96.7 H MPV 7.0 L Neutrophils % 90.2 H Lymphocytes % 5.7 L Monocytes % 2.7 L Anion Gap 3 L Random Glucose 108 H Calcium 8.4 L AST 13 L Total Protein 5.9 L Albumin 3.2 L Echo: Image Reviewed Ejection Fraction %: LVEF > or = 40 % Imaging - Results EKG: Image Reviewed Problem List - Problems (1) S/P TURP Code(s): Z90.79 - ACQUIRED ABSENCE OF OTHER GENITAL ORGAN(S) (2) Bradycardia Assessment/Plan: post-op bradycardia. EKG: sinus bradycardia with sinus arrhythmia; Telemetry post-op: sinus bradycardia with sinus arrhythmia; APC with sinus pause. ECHO: normal LVEF; abnormal diastolic compliance; mild TR; trace-mild WA. Plan: F/u on telemtry F/u labs, ncluding TNI and TSH. Pain management. EKG in am. From a cardiac standpoint, if there are no significant findings on telemetry overnight, pt can be followed up as an outpatient. Code(s): R00.1 - BRADYCARDIA, UNSPECIFIED (3) Urinary retention Code(s): R33.9 - RETENTION OF URINE, UNSPECIFIED
--- NOTE | 2018-06-01 19:52 | PN ---
Teaching Attending Note Name of Resident: Beena Dubon ATTENDING PHYSICIAN STATEMENT I saw and evaluated the patient. I reviewed the resident's note and discussed the case with the resident. I agree with the resident's findings and plan as documented. SUBJECTIVE: Patient is feeling better with no acute distress. No fever or chills overnight. no headache, no shortness of breath. OBJECTIVE: Vital Signs Temperature 98.5 F 06/01/18 17:05 Pulse Rate 72 06/01/18 17:05 Respiratory Rate 18 06/01/18 17:05 Blood Pressure 138/80 06/01/18 17:05 O2 Sat by Pulse Oximetry (%) 100 06/01/18 17:05 GENERAL: Awake, alert, and fully oriented, in no acute distress HEAD: Normal with no signs of trauma. EYES: Pupils equal, extraocular movements intact, Uses hearing aide EARS, NOSE, THROAT: Moist mucous membranes. NECK: Normal range of motion, supple without lymphadenopathy, JVD, or masses. LUNGS: Breath sounds equal, clear to auscultation bilaterally. No wheezes, and no crackles. HEART: Regular rate and rhythm, normal S1 and S2 without murmur ABDOMEN: Soft, NT, ND, reduced bowel sounds, MUSCULOSKELETAL: Normal range of motion at all joints. No bony deformities or tenderness. EXTREMITIES: 2+ pulses, warm, well-perfused. No calf tenderness. No peripheral edema. NEUROLOGICAL: Cranial nerves II-XII intact. Normal speech. Gait is stable CBCD WBC 7.5 K/mm3 (4.0-10.0) 06/01/18 14:00 RBC 3.46 M/mm3 (4.00-5.60) L 06/01/18 14:00 Hgb 10.8 GM/dL (11.7-16.9) L 06/01/18 14:00 Hct 33.4 % (35.4-49) L 06/01/18 14:00 MCV 96.7 fl (80-96) H 06/01/18 14:00 MCHC 32.3 g/dl (32.0-35.9) 06/01/18 14:00 RDW 13.9 % (11.9-15.9) 06/01/18 14:00 Plt Count 226 K/MM3 (134-434) 06/01/18 14:00 MPV 7.0 fl (7.5-11.1) L 06/01/18 14:00 CMP Sodium 138 mmol/L (136-145) 06/01/18 14:00 Potassium 4.5 mmol/L (3.5-5.1) 06/01/18 14:00 Chloride 105 mmol/L (98-107) 06/01/18 14:00 Carbon Dioxide 29 mmol/L (21-32) 06/01/18 14:00 Anion Gap 3 MMOL/L (8-16) L 06/01/18 14:00 BUN 17 mg/dL (7-18) 06/01/18 14:00 Creatinine 1.1 mg/dL (0.55-1.3) 06/01/18 14:00 Creat Clearance w eGFR > 60 (>60) 06/01/18 14:00 Random Glucose 108 mg/dL (74-106) H 06/01/18 14:00 Calcium 8.4 mg/dL (8.5-10.1) L 06/01/18 14:00 Total Bilirubin 0.2 mg/dL (0.2-1) 06/01/18 14:00 AST 13 U/L (15-37) L 06/01/18 14:00 ALT 15 U/L (13-61) 06/01/18 14:00 Alkaline Phosphatase 67 U/L (45-117) 06/01/18 14:00 Total Protein 5.9 g/dl (6.4-8.2) L 06/01/18 14:00 Albumin 3.2 g/dl (3.4-5.0) L 06/01/18 14:00 CARDIAC ENZYMES Creatine Kinase 44 IU/L (26-308) 06/01/18 14:00 Troponin I 0.03 ng/ml (0.00-0.05) 06/01/18 14:00 Current Medications Generic Name Dose Route Start Last Admin Trade Name Freq PRN Reason Stop Dose Admin Acetaminophen 650 mg 06/01/18 12:46 Tylenol - PO 06/04/18 12:45 Q4H PRN PAIN Lactated Ringer's 1,000 mls @ 75 mls/hr 06/01/18 13:00 06/01/18 18:13 Lactated Ringers Solution IV 75 mls/hr ASDIR JORGE Administration Cefazolin Sodium 1 gm in 50 mls @ 100 mls/hr 06/01/18 18:00 06/01/18 18:13 Ancef 1 Gm Premixed Ivpb - IVPB 06/02/18 17:59 100 mls/hr Q8H-IV JORGE Administration Ondansetron HCl 4 mg 06/01/18 12:57 Zofran Injection IVPUSH Q6H PRN NAUSEA AND/OR VOMITING Oxycodone HCl 10 mg 06/01/18 12:46 Roxicodone - PO Q4H PRN PAIN Home Medications Medication Instructions Recorded Terazosin HCl [Hytrin] 2 mg PO HS 04/20/18 Dutasteride 0.5 mg PO DAILY 05/28/18 Amox-Tr/K Cl [Augmentin - 500Mg 1 tab PO BID #14 tab 06/01/18 Tablet] EKG- sinus gely with arrythmias- see above ECHO 2013: Nl LVEF, LV size, Grade 1 diastolic dysfunction, regional wall motionalities cannot be excluded, trace MR, TR and UT. Post TURP EKG- Showed vent rate 52bpm, likely LVH, sinus bradycardia with with sinus arrythmia, nl axis, QTC-457. ECHO 06/01/18: Nl LVEF (50-55%), nl LV size,RVSF-nl, RV size nl,RVSpressure is nl , Grade 1 diastolic dysfunction (abnl relaxation), mild aortic valve thickening , nl aortic root size, trace to mild MR, mild TR and Trace UT, No pericardial effusion. ASSESSMENT AND PLAN: Pt is a 78 yo M with PMHx of hepatitis A, BPH, urinary retention with tadeo, prior TURP, who was noted to have become bradycardic up to 33bpm during/after TURP today. Pt had sinus bradycardia with pauses vs 2nd degree AV block type 2 on the tele strip (D/W Dr Campuzano). #Post op Bradycardia improved : back to nsr, is ok cardiac stand point to discharge the patient home. #Grade 1 diastolic dysfunction see above #POD #1 for TURP DVT Px: SCDs
[2018-06-02] MEDS: CEFAZOLIN 1 GM/D5W 1 GM/50 ML BAG IVPB SCH ×2 (02:31→10:20)
[2018-06-02 06:10] VITALS: TEMP 99.4
[2018-06-02 07:37] LABS: BASO % 0.5 % (0-2.0); EOS % 0.5 % (0-4.5); HEMATOCRIT 33.3 % (35.4-49); HEMOGLOBIN 10.9 GM/dL (11.7-16.9); LYMPH % 6.2 % (8-40); MCH 31.3 pg (25.7-33.7); MCHC 32.6 g/dl (32.0-35.9); MEAN CELL VOLUME 95.9 fl (80-96); MEAN PLT VOLUME 6.9 fl (7.5-11.1); MONO % 6.7 % (3.8-10.2); NEUT % 86.1 % (42.8-82.8); PLATELET COUNT 222 K/MM3 (134-434); RBC 3.48 M/mm3 (4.00-5.60); RDW 13.9 % (11.9-15.9); WHITE BLOOD COUNT 10.8 K/mm3 (4.0-10.0)
--- NOTE | 2018-06-02 07:40 | PN ---
LOVELY Ha Note Chief Complaint: pt w/o c/o, events noted, cardiology cons appreciated History of Present Illness: POD # 1 s/p TURP - Objective Vital Signs: Vital Signs Temperature 99.4 F 06/02/18 05:00 Pulse Rate 62 06/02/18 05:00 Respiratory Rate 18 06/02/18 06:00 Blood Pressure 110/71 06/02/18 05:00 O2 Sat by Pulse Oximetry (%) 100 06/02/18 06:00 Constitutional: Yes: Well Nourished, No Distress, Calm Gastrointestinal: Yes: WNL, Normal Bowel Sounds, Soft Genitourinary: Yes: Tadeo Present. No: Hematuria Problem List - Problems (1) Bradycardia Code(s): R00.1 - BRADYCARDIA, UNSPECIFIED (2) S/P TURP Code(s): Z90.79 - ACQUIRED ABSENCE OF OTHER GENITAL ORGAN(S) (3) Urinary retention Assessment/Plan: Discont cbi, disch w tadeo if cleared by cardiology Code(s): R33.9 - RETENTION OF URINE, UNSPECIFIED
[2018-06-02 08:09] VITALS: BP 133/82; PULSE 80
[2018-06-02 08:24] LABS: ALK PHOS 65 U/L (45-117); ANION GAP 7 MMOL/L (8-16); BILIRUBIN,TOTAL 0.4 mg/dL (0.2-1); BLOOD UREA NITROGEN 16 mg/dL (7-18); CALCIUM 8.4 mg/dL (8.5-10.1); CHLORIDE 99 mmol/L (98-107); CO2 28 mmol/L (21-32); CREATININE 1.1 mg/dL (0.55-1.3); GLUCOSE,RANDOM 95 mg/dL (74-106); MAGNESIUM 1.9 mg/dL (1.8-2.4); POTASSIUM 3.8 mmol/L (3.5-5.1); SGOT/AST 11 U/L (15-37); SGPT/ALT 12 U/L (13-61); SODIUM 134 mmol/L (136-145); TOT PROT 5.7 g/dl (6.4-8.2)
--- NOTE | 2018-06-02 11:58 | PN ---
Progress Note (short form) - Note Progress Note: Asked by hospitalist service to evaluate prior to discharge. Patient has undergone TURP with post op event with reported sinus bradycardia event. Reviewed telemetry patient with NSR with APCs. ECG with NSR. Troponin negative. No indication to for inpatient level of care from cardiovascular standpoint. Patient denies any lh, dizziness, chest pain, palpitations, orthopnea, PND or KHALIF. Will follow-up with outpatient cardiology. Stanley Mace MD
--- NOTE | 2018-06-02 12:37 | EKG ---
Test Reason : Blood Pressure : / mmHG Vent. Rate : 073 BPM Atrial Rate : 073 BPM P-R Int : 184 ms QRS Dur : 080 ms QT Int : 382 ms P-R-T Axes : 054 038 030 degrees QTc Int : 420 ms NORMAL SINUS RHYTHM NORMAL ECG WHEN COMPARED WITH ECG OF 01-JUN-2018 13:44, NONSPECIFIC T WAVE ABNORMALITY NOW EVIDENT IN INFERIOR LEADS Confirmed by MD BLAKE, ADRIANO ([id number]) on 06/02/2018 12:37:00 PM Referred By: Nany GUERRA Confirmed By:ADRIANO LOZANO MD
--- NOTE | 2018-06-04 11:12 | PATH ---
Surgical Pathology Report Patient Name: WILLIAM STATON Med. Rec. #: [id number] /Age/Gender: 1940 (Age: 78) / M Account: [id number] Location: 4 W TELEMETRY U Taken: 06/01/2018 Received: 06/01/2018 Reported: 06/04/2018 Physicians: Gordo Mckeon M.D. Specimen(s) Received PROSTATE CHIPS Clinical History BPH Final Diagnosis PROSTATE, TRANSURETHRAL RESECTION OF PROSTATE: BENIGN PROSTATIC TISSUE WITH MARKED ACUTE INFLAMMATION, ACINAR ATROPHY, CYSTIC CHANGES, AND STROMAL HYPERPLASIA. Electronically Signed Yvette Pearson M.D. Gross Description Received in formalin labeled "prostate tissue," is a 2 g, 3.5 x 3.5 x 0.4 cm aggregate of landeros, irregular to fragmented portions of firm to rubbery tissue, consistent with prostate tissue. The formalin is filtered and the specimen is entirely submitted in 3 cassettes. /06/01/2018 saudi06/01/2018
== END 2018-06-02 11:57 | disposition home or self-care (01) ==
LOC: JASU-SURG 10:27 → JASUSAT 10:27 → INTOOBSV 11:40 → JSAMEDAYSX 11:40 → J4W 17:24
PROVIDERS: ADMIT Urology; ATTEND Urology
PROC: 3E03329 Introduction of Other Anti-infective into Peripheral Vein, Percutaneous Approach (ICD-10-PCS; 2018-06-01)
PROC: 3E033NZ Introduction of Analgesics, Hypnotics, Sedatives into Peripheral Vein, Percutaneous Approach (ICD-10-PCS; 2018-06-01)
PROC: 3E0337Z Introduction of Electrolytic and Water Balance Substance into Peripheral Vein, Percutaneous Approach (ICD-10-PCS; 2018-06-01)
PROC: 0VT08ZZ Resection of Prostate, Via Natural or Artificial Opening Endoscopic (ICD-10-PCS; principal; 2018-06-01 12:00)
DX: N40.1 Benign prostatic hyperplasia with lower urinary tract symptoms (principal); R00.1 Bradycardia, unspecified; I44.2 Atrioventricular block, complete; I97.191 Other postprocedural cardiac functional disturbances following other surgery; Z86.19 Personal history of other infectious and parasitic diseases; Z88.2 Allergy status to sulfonamides; Z96.0 Presence of urogenital implants
CPT/HCPCS: 36415; 80053; 80061; 82550; 83721; 83735; 84443; 84484; 85025; 85730; 88305-TC; 93005; 93010; 93306-TC; 94010; 94760; 96374; 96375; G0378